=== PATIENT | female | born 1955 | race Caucasian/White ===

== ENCOUNTER 2019-03-12 09:21 | Inpatient (IN) | payer BC, MEDICARE ==
[~2019-03-12] VITALS: Ht 160 cm; Wt 59.4 kg
[2019-03-12 10:20] LABS: CHLORIDE 105 mEq/L (98-107)
[2019-03-12 10:21] LABS: INR 1.3; PROTHROMBIN TIME 12.9 sec (9.6-11.0)
[2019-03-12 10:29] LABS: HEMATOCRIT. 24.9 % (36.0-48.0); HEMOGLOBIN. 8.4 g/dL (12.0-16.0); MEAN CORPUSCULAR VOLUME 119.2 fL (81.0-99.0); MEAN PLATELET VOLUME 10.4 fl (7.4-10.4); PLATELET 107 x1000/uL (130-400); RED BLOOD CELL COUNT 2.09 mill/uL (4.2-5.4); RED CELL DISTRIBUTION WIDTH 18.4 % (11.6-14.6)
[2019-03-12] MEDS ORDERED: FAMOTIDINE 20MG/2ML VIAL IV ONE (11:15)
[2019-03-12 12:06] LABS: PLATELET ESTIMATE SLIGHTLY DECREASED
[2019-03-12] MEDS ORDERED: PALB75CA PO (13:49)
[2019-03-12] MEDS ORDERED: LETR2.5T6 PO (13:49)
[2019-03-12] MEDS ORDERED: DENO60DI SQ (13:49)
[2019-03-12] MEDS ORDERED: CHOL200074 PO (13:49)
[2019-03-12] MEDS ORDERED: ACETAMINOPHEN 650MG SUPP PR PRN (14:30)
[2019-03-12] MEDS ORDERED: ONDANSETRON HCL 4MG/2ML INJ IV PRN (14:30)
[2019-03-12 14:35] VITALS: BP 129/70
[2019-03-12 16:00] VITALS: BP 117/64
[2019-03-12] MEDS: PANTOPRAZOLE SODIUM 40 MG/VIAL IV SCH (17:32)
[2019-03-12] MEDS: DEXT 5%/0.45% NACL 1000ML 1,000 ML IV SCH (17:33)
[2019-03-12] MEDS: HYDROMORPHONE HCL/PF 2MG/ML CPJ IV PRN (17:42)
[2019-03-12 17:44] LABS: HEMATOCRIT 22.7 % (36.0-48.0); HEMOGLOBIN 7.8 g/dL (12.0-16.0)
[2019-03-12 19:14] LABS: HEPATITIS B SURFACE ANTIGEN NEGATIVE
[2019-03-12 19:44] LABS: HEPATITIS A AB IGM NEGATIVE (NEGATIVE)
[2019-03-12 20:00] VITALS: BP 105/52
[2019-03-13] VITALS (9 sets, daily range): BP systolic 84–111; BP diastolic 50–65
[2019-03-13] MEDS: HYDROMORPHONE HCL/PF 2MG/ML CPJ IV PRN (00:01)
[2019-03-13] MEDS: PANTOPRAZOLE SODIUM 40 MG/VIAL IV SCH ×3 (00:01→21:12)
[2019-03-13] MEDS: DEXT 5%/0.45% NACL 1000ML 1,000 ML IV SCH ×2 (07:11→17:26)
[2019-03-13 09:22] LABS: MEAN CORPUSCULAR HEMOGLOBIN 39.8 pg (28.0-32.0); MEAN CORPUSCULAR VOLUME 118.3 fL (81.0-99.0); MEAN PLATELET VOLUME 9.4 fl (7.4-10.4); PLATELET 99 x1000/uL (130-400); RED BLOOD CELL COUNT 1.64 mill/uL (4.2-5.4); RED CELL DISTRIBUTION WIDTH 17.7 % (11.6-14.6)
[2019-03-13 09:32] LABS: HEMATOCRIT. 19.4 % (36.0-48.0); HEMOGLOBIN. 6.5 g/dL (12.0-16.0)
[2019-03-13 10:07] LABS: CHLORIDE 107 mEq/L (98-107)
[2019-03-13] MEDS ORDERED: BACTERIOSTATIC SODIUM CHLORIDE 0.9% 30ML VIAL IJ ONE (10:27)
[2019-03-13] MEDS ORDERED: MIDAZOLAM HCL 5 MG/5 ML VIAL ONE (10:56)
[2019-03-13] MEDS ORDERED: FENTANYL CITRATE/PF 50MCG/ML 2ML VIAL ONE (10:56)
[2019-03-13] MEDS ORDERED: MIDAZOLAM HCL 5 MG/5 ML VIAL IV PRN (10:59)
[2019-03-13] MEDS ORDERED: FENTANYL CITRATE/PF 50MCG/ML 2ML VIAL IV PRN (11:00)
[2019-03-13] MEDS ORDERED: SIMETHICONE 40 MG/0.6 ML 30ML ONE (11:09)
[2019-03-13 12:50] LABS: FOLIC ACID (FOLATE) SERUM 7.3 ng/mL (>5.38)
[2019-03-13] MEDS ORDERED: SODIUM CHLORIDE 0.9% 1,000 ML IV NR (14:00)
[2019-03-13] MEDS ORDERED: SODIUM CHLORIDE 0.9% 500 ML IV ONE (14:45)
[2019-03-13 20:59] LABS: PLATELET ESTIMATE DECREASED
[2019-03-13] MEDS: PROPRANOLOL HCL 20MG TABLET PO SCH (21:00)
[2019-03-14 01:05] LABS: HEMOGLOBIN 7.2 g/dL (12.0-16.0); MEAN CORPUSCULAR HEMOGLOBIN 38.4 pg (28.0-32.0); MEAN CORPUSCULAR VOLUME 110.1 fL (81.0-99.0); PLATELET 84 x1000/uL (130-400); RED BLOOD CELL COUNT 1.86 mill/uL (4.2-5.4)
[2019-03-14 01:09] LABS: HEMATOCRIT 20.5 % (36.0-48.0)
[2019-03-14 03:58] VITALS: BP 105/57
[2019-03-14] MEDS: DEXT 5%/0.45% NACL 1000ML 1,000 ML IV SCH (06:04)
[2019-03-14 06:19] LABS: CHLORIDE 110 mEq/L (98-107)
[2019-03-14 06:24] LABS: HEMATOCRIT. 21.5 % (36.0-48.0); HEMOGLOBIN. 7.5 g/dL (12.0-16.0); MEAN CORPUSCULAR HEMOGLOBIN 38.4 pg (28.0-32.0); MEAN PLATELET VOLUME 9.7 fl (7.4-10.4); PLATELET 91 x1000/uL (130-400); RED BLOOD CELL COUNT 1.95 mill/uL (4.2-5.4); RED CELL DISTRIBUTION WIDTH 23.7 % (11.6-14.6)
[2019-03-14] MEDS ORDERED: OMEPRAZOLE 20MG CAPSULE EXTENDED RELEASE PO SCH (07:10)
[2019-03-14 08:00] VITALS: BP 99/58
[2019-03-14] MEDS: PROPRANOLOL HCL 20MG TABLET PO SCH (09:00)
[2019-03-14] MEDS: PANTOPRAZOLE SODIUM 40 MG/VIAL IV SCH (09:14)
[2019-03-14] MEDS ORDERED: POTASSIUM CHLORIDE 20MEQ TABLET SR PO NR (11:00)
[2019-03-14 12:00] VITALS: BP 119/62
[2019-03-14] MEDS ORDERED: MAGNESIUM 1 G PREMIX 100 ML IV NR (12:30)
[2019-03-14] MEDS ORDERED: MAGNESIUM OXIDE 400MG TABLET PO NR (12:30)
[2019-03-14 15:22] VITALS: BP 119/62
[2019-03-14 17:02] LABS: PLATELET ESTIMATE DECREASED
== END 2019-03-14 16:09 | disposition home or self-care (01) | DRG 377 ==
LOC: ER 09:54 → 8WST 11:15 → EDBEDREQ 11:17 → ENRESERV 13:01
PROVIDERS: ADMIT Hospitalist; ATTEND Hospitalist
PROC: 0DB68ZX Excision of Stomach, Via Natural or Artificial Opening Endoscopic, Diagnostic (ICD-10-PCS; principal; 2019-03-13)
PROC: 30233N1 Transfusion of Nonautologous Red Blood Cells into Peripheral Vein, Percutaneous Approach (ICD-10-PCS; 2019-03-13)
DX: K29.71 Gastritis, unspecified, with bleeding (principal); E43 Unspecified severe protein-calorie malnutrition; D62 Acute posthemorrhagic anemia; K76.6 Portal hypertension; C78.7 Secondary malignant neoplasm of liver and intrahepatic bile duct; D61.818 Other pancytopenia; I85.00 Esophageal varices without bleeding; E86.0 Dehydration; K74.60 Unspecified cirrhosis of liver; C50.919 Malignant neoplasm of unspecified site of unspecified female breast; I10 Essential (primary) hypertension; K31.89 Other diseases of stomach and duodenum; Z60.2 Problems related to living alone; K44.9 Diaphragmatic hernia without obstruction or gangrene; M19.90 Unspecified osteoarthritis, unspecified site; M81.0 Age-related osteoporosis without current pathological fracture; Z79.811 Long term (current) use of aromatase inhibitors; Z79.82 Long term (current) use of aspirin; Z68.23 Body mass index [BMI] 23.0-23.9, adult; Z85.3 Personal history of malignant neoplasm of breast; Z90.49 Acquired absence of other specified parts of digestive tract; Z79.899 Other long term (current) drug therapy
CPT/HCPCS: 36415; 71045; 76700; 82105; 82607; 82746; 83735; 83880; 84484; 85014; 85018; 85027; 86705; 86709; 86803; 86850; 86900; 86920; 87340; 88305; 88313; 93005; 93970; 96374; 99285; C1893; C9113; J1170; J2250; J3010; J3475; J3490; J7040; P9016